=== PATIENT | male | born 1995 | race African-American/Black ===

== ENCOUNTER 2016-07-16 19:52 | Emergency (ER) | payer OTHER ==
[2016-07-16] MEDS ORDERED: IBUPROFEN 600 MG TAB As Ordered ONE (21:08)
[2016-07-16] MEDS ORDERED: CYCLOBENZAPRINE 10 MG TAB As Ordered ONE (21:09)
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
== END 2016-07-16 21:21 | disposition home or self-care (01) ==
LOC: M ED 19:52
DX: S13.4XXA Sprain of ligaments of cervical spine, initial encounter (principal); S33.5XXA Sprain of ligaments of lumbar spine, initial encounter; V47.6XXA Car passenger injured in collision with fixed or stationary object in traffic accident, initial encounter; Y92.410 Unspecified street and highway as the place of occurrence of the external cause